=== PATIENT | female | born 1935 | race Caucasian/White ===

== ENCOUNTER 2017-11-02 15:00 | Outpatient (RCR) | payer MEDICARE, OTHER, SELFPAY ==
--- NOTE | 2017-10-06 09:31 | HP.PTEVAL_ITS ---
Patient's Visit Information GT DELGADO is a 82 year old F referred to Physical Therapy by Lisa JOHANSEN with a diagnosis of Physical deconditioning. Date of Evaluation: 09/29/17 Physical Therapist: Amor Del Rosario - Visit Plan Frequency: 2x /Week Duration: 4-6 Weeks Plan: Start with BLE strengthening progressing HEP. Educate on walking program at home. Nustep/bike for endurance. Add in balance activities as able, progress to HEP. - Subjective Subjective: Pt. is here today for her initial evaluation with diagnosis of physical deconditioning. Pt. arrives today with son to assist with history. Son reports pt. has mild dementia. Pt. and son report pt. spends most of her time in bed, only gets out of bed for 3 meals per day. Pt agrees. Pt. reports this is due to back pain. 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 Pt. reports LBP at times, that is worse with sitting and lying on hard surfaces. Pt. 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 Pt. does complete her own ADLs. Son is hopeful to increase pt's endurance and strength in order to tolerate increased walking and getting out into community. - Pain Lumbar spine Pain Intensity (Out of 10): Unrated Comment: Increased pain with sitting and lying in supine. - Objective POSTURE: Pt. is able to stand without AD. Pt. has FH and general flexed posture. Pt. has normal QUAN in stance. Pt. has sway back posture. PALPATION: Pt. has increased tenderness along bilateral SI region and lumbar spine. No pain throughout bilateral LEs. NEUROLOGICAL: Pt. has normal sensation to light and sharp touch throughout bilateral LEs. Pt. has 2+ achilles and patellar DTR bilaterally. Pt is able to rise on heels and toes wihtout visible weakness, but reports fatigue, balance aid required. ROM: LUMBAR SPINE: flexion- min loss increase NW, ext mod loss increase NW, SB min loss bilat NE, rotation min/mod loss increase NW bilat. Hip- bilaterally with in normal limits, tight HS and tight hip flexors bilaterally. MMT: RLE- ankle 5/5 throughout; knee- ext 4/5, flexion 4/5; hip- flexion 4/5 increase NW, abd 4-/5 increase NW, ext 4/5. LLE- ankle 5/5 throughout; knee- ext 4/5, flexion 4/5; hip-flexion 4/5, abd 4-/5, ext 4/5. Core strength- poor. GAIT: Pt. ambulates with single point cane with out postural sway. Decreased step length bilat, decreased tempo. Removed increased postural sway, decreased further leg length, and arms in gaurded positioning. STAIRS: PT. is michael to negotiate with 2 HR with step to pattern. Pt. reports increased pain in lumbar spine. Decreased tempo noted. Decreased functional strength noted with descending. - Balance Scores Functional Gait Assessment Score: 13 % Disability: 56.6700 - Goals Goal 1:: PT. to be I with HEP. Goal Time Frame: 4-6 Weeks Goal 2:: Pt. to have increased BLE strength by 1/2 grade to increase ability to complete all functional mobility. Goal Time Frame: 4-6 Weeks Goal 3:: Pt. to start and maintain walking routine with gradual progression to increase overall endurance and maintain/improve fitness levels. Goal Time Frame: 4-6 Weeks Goal 4:: Pt. to walk 1000+ feet without Ad with improved gait pattern, indicating increased overall endurance. Goal Time Frame: 4-6 Weeks Goal 5:: Pt. to report increased lumbar spine pain to 2/10 with sleeping and sitting improving quality of life. Goal Time Frame: 4-6 Weeks - Rehabilitation Potential Physical Therapy Diagnosis: Pt. presents with overall physical deconditioning due to limited daily activity. Pt. does very minimal activty throughout the day and spends most of her day in bed. Pt. presents with marked BLE and core weakness, marked gait difficulty and overall decreased endurance. Pt. would benefit from PT to address above limittations. Rehabilitation Potential: Fair - Anticipated Interventions Patient/Client Instruction: Educate patient on: Condition, Plan of Care, Risk Factors, Benefits of Fitness Program For the Purpose of:: To improve decision making, To facilitate caregiver knowledge, To improve self management, To prevent re-injury, To improve ability to perform tasks related to life management, To improve tolerance to ADL's Therapeutic Exercise to Include: Strength training, Power training, Endurance training, Balance training, Coordination, Postural training, Gait and locomotor training, Passive ROM, Active ROM, Dynamic Lumbar Stabilization For the Purpose of:: To decrease pain, To decrease swelling/inflammation, To increase ROM, To improve nutrient delivery to tissue, To increase oxygenation perfusion, To improve muscle performance and motor function, To improve ability to perform ADL's, To increase tolerance to activity/condition/position, To improve performance and independence with ADL's, To improve ability of physical actions for home/community/work/leisure, To improve gait and locomotor functions , To improve health of tissue Cryotherapy (ice pack, ice massage): Yes Thermo therapy (hot pack): Yes For the Purpose of:: To decrease pain, To increase ROM Thank you for the opportunity to evaluate your patient. For Medicare and Medicare HMO plans, please review the plan of care and approve it. It will need to be FAXED BACK to us at [phone] for Medicare purposes. Please let me know if there are questions or concerns regarding this plan of care. Physician Signature: Date:
--- NOTE | 2017-11-03 10:21 | HP.PTREVAL_ITS ---
Lisa Brooks, It has been my pleasure to treat GT DELGADO over the last 8 visits for Physical deconditioning. Please see the progress note below for an update on the physical therapy plan of care! Subjective: Pt. reports I am getting better. Son reports increased walking at home and has started getting out into garden. Son reports pt. is up and moving for increased periods of the day rather than lying in bed for 20+ hours per day. Pt. reprots having 3/10 pain in lumbar spine at times, none currently Objective/Function: GAIT- Pt. ambulated 350ft. with ANTOINE with cane. Pt. required frequent VCing for proper technique with cane, as she tends to drag can behind her. Pt. had increased stability this date. MMT- RLE- ankle 5/5 throughout; knee- ext 4+/5, flexion 4/5; hip- flexion 4/5, abd 4/5, ext 4+/5. LLE- ankle 5/5 throughout; knee- ext 5-/5, flexion 4/5; hip- flexion 4/5, abd 4/ 5, ext 4+/5. Pt. reports no lumbar spine pain currently, but reports having increased pain with all outside work. Son reports increased walking at home and outside, as well as going to grocery store this week. Pt. does report increased fatigue as times thats because I am anemic. Pt. is progressing as expected with endurance and functional mobility. Plan Plan: POC extended 2x per week for 3-4 weeks to continue to progress LE strength , gait stability, endurance and safety with all functional mobility. Focus on increased endurance and BLE strengthening to increase community mobility tolerance. Goals Goal 1:: PT. to be I with HEP. Goal Time Frame: 4-6 Weeks Goal Progress: Progressing Goal 2:: Pt. to have increased BLE strength by 1/2 grade to increase ability to complete all functional mobility. Goal Time Frame: 4-6 Weeks Goal Progress: Progressing Goal 3:: Pt. to start and maintain walking routine with gradual progression to increase overall endurance and maintain/improve fitness levels. Goal Time Frame: 4-6 Weeks Goal Progress: Progressing Goal 4:: Pt. to walk 1000+ feet without Ad with improved gait pattern, indicating increased overall endurance. Goal Time Frame: 4-6 Weeks Goal Progress: Progressing Goal 5:: Pt. to report increased lumbar spine pain to 2/10 with sleeping and sitting improving quality of life. Goal Time Frame: 4-6 Weeks Goal Progress: Progressing Anticipated Interventions Patient/Client Instruction: Educate patient on: Condition, Plan of Care, Risk Factors, Benefits of Fitness Program For the Purpose of:: To improve decision making, To facilitate caregiver knowledge, To improve self management, To prevent re-injury, To improve ability to perform tasks related to life management, To improve tolerance to ADL's Therapeutic Exercise to Include: Strength training, Power training, Endurance training, Balance training, Coordination, Postural training, Gait and locomotor training, Passive ROM, Active ROM, Dynamic Lumbar Stabilization For the Purpose of:: To decrease pain, To decrease swelling/inflammation, To increase ROM, To improve nutrient delivery to tissue, To increase oxygenation perfusion, To improve muscle performance and motor function, To improve ability to perform ADL's, To increase tolerance to activity/condition/position, To improve performance and independence with ADL's, To improve ability of physical actions for home/community/work/leisure, To improve gait and locomotor functions , To improve health of tissue Cryotherapy (ice pack, ice massage): Yes Thermo therapy (hot pack): Yes For the Purpose of:: To decrease pain, To increase ROM Please do not hesitate to contact me at [phone] by phone or Fax: if you have questions or concerns regarding this new plan of care! Sincerely, Amor Del Rosario
--- NOTE | 2018-03-17 11:36 | HP.PTDCNRP_ITS ---
HP - Discharge Summary (1) - Patient Information GT DELGADO was seen in my office for initial evaluation on 09/29/17. The following Plan of Care was established for this patient: Initial Frequency: 2x /Week Initial Duration: 4-6 Weeks - Anticipated Interventions Patient/Client Instruction: Educate patient on: Condition, Plan of Care, Risk Factors, Benefits of Fitness Program For the Purpose of:: To improve decision making, To facilitate caregiver knowledge, To improve self management, To prevent re-injury, To improve ability to perform tasks related to life management, To improve tolerance to ADL's Therapeutic Exercise to Include: Strength training, Power training, Endurance training, Balance training, Coordination, Postural training, Gait and locomotor training, Passive ROM, Active ROM, Dynamic Lumbar Stabilization For the Purpose of:: To decrease pain, To decrease swelling/inflammation, To increase ROM, To improve nutrient delivery to tissue, To increase oxygenation perfusion, To improve muscle performance and motor function, To improve ability to perform ADL's, To increase tolerance to activity/condition/position, To improve performance and independence with ADL's, To improve ability of physical actions for home/community/work/leisure, To improve gait and locomotor functions , To improve health of tissue Cryotherapy (ice pack, ice massage): Yes Thermo therapy (hot pack): Yes For the Purpose of:: To decrease pain, To increase ROM This patient was last seen in our office 11/02/17. Pertinent comments regarding their Physical therapy will appear below: Pt. was see for her generalized weakness. Pt. progress with BLE/core strength and stability with gait. Pt. agreed to extended POC, but did not attend any further treatments. Pt. has not been seen in ~4 months and will be DC from PT at this point in time. At this point I will be discontinuing this patient from physical therapy. I would be happy to see this patient again in the future if found appropriate by the physician. Thank you! Amor Del Rosario
== END 2017-11-02 19:00 | disposition home or self-care (01) ==
LOC: PT 15:00
PROVIDERS: Family Provider Internal Medicine; PCP Internal Medicine; Visit Provider Internal Medicine
DX: R53.81 Other malaise (principal)
CPT/HCPCS: 97110; 97116; 97162; 97530

== ENCOUNTER → 2017-12-10 16:10 | Outpatient (CLI) | payer MEDICARE, OTHER, SELFPAY ==
--- NOTE | 2017-12-10 16:10 | DT_ITS ---
This patient was seen during an EMR downtime December 06, 2017 - December 13, 2017. This patient may have a combination of paper and electronic documentation or all paper documentation. All documentation is viewable within the e-chart portion of [employer] for each patient visit.
[2017-12-14 09:28] LABS: CRP < 2.90 mg/L (0.0-3.0); Iron 91 ug/dL (50-170)
[2017-12-17 16:11] LABS: Endomysial Antibody IgA Negative (Negative); Immunoglobulin A 212 mg/dL (64-422)
[2017-12-18 14:30] LABS: t-Transglutaminase IgA <2 U/mL (0-3)
== END ==
PROVIDERS: Family Provider Internal Medicine; PCP Internal Medicine; Visit Provider Internal Medicine Gastroenterology
DX: R19.7 Diarrhea, unspecified (principal); D50.9 Iron deficiency anemia, unspecified
CPT/HCPCS: 36415; 82784; 83516; 83540; 86140; 86255

== ENCOUNTER → 2018-03-18 13:29 | Outpatient (CLI) | payer MEDICARE, OTHER, SELFPAY ==
--- NOTE | 2018-03-18 13:00 | SP.MBSS_ITS ---
PRIMARY / SECONDARY DIAGNOSIS: dysphagia (R13.10) REFERRING PHYSICIAN: Dr. Lisa Brooks MD CURRENT DIET: regular textures, thin liquids DENTITION: upper plate, lower partials MENTAL STATUS: dementia RESPIRATORY STATUS: O2 via room air PREVIOUS MODIFIED BARIUM SWALLOW STUDY: 09/28/2016 MBS revealed mild oropharyngeal dysphagia (R13.12) with transient penetration of thin liquids. 09/03/2016 MBS revealed mild dysphagia (R13.10), with transient penetration above the vocal folds of thin liquids. REASON FOR REFERRAL: Patient is an 82 year old female referred for a modified barium swallow (MBS) study to objectively assess the Patients oropharyngeal swallow function under fluoroscopy secondary to the diagnosis of dementia and associated dysphagia and reported prior cerebrovascular accidents vs. transient ischemic attacks. The Patient is well known to this clinician from previous [facility] admissions spanning from 03/14/2016 to 2015, in addition to prior hospitalization from 09/01/2016 to 09/04/2016 due to shortness of breath, and nausea with emesis and dehydration, treated for pneumonia and hypoxia related to an aspiration event; and 09/03/2016 repeat MBS. The Patient was accompanied to the assessment by her significant other (Jeremias ), who provided insight into current abilities. Per report, the Patient occasionally experiences a midsternal thump or hollow feeling without odynophagia during deglutition with occasional coughing spells, though neither is consistently associated with intake. Both report about a 5-10 weight loss over 8 months that is attributed to a varied appetite / poor appetite that fluctuates with stress, with the Patient notably preferring sweets. The Patient denies any dysgeusia or ageusia, denies sialorrhea. The Patient has additionally demonstrated a continued gradual decline in cognitive functioning, and has required increased assistance with daily care, requiring assistance with dressing, intermittently incontinent of stool and urine with recent UTIs, requires assistance for meal preparation and setup; Faheem Index: (75/100) minimal dependence (based on report). The Patient is completely dependent for all higher level cognitive tasks (finances, medications, does not drive, does not manage daily schedule) which has been consistent for years. MEDICAL HISTORY: Dementia, chronic obstructive pulmonary disease, gastroesophageal reflux disease, chronic benzodiazepine dependence with hallucinations, severe depression & anxiety with history of suicide attempts, nicotine addiction and tobacco abuse, chronic pain and weakness, degenerative joint disease, hypertension, venous insufficiency, hard of hearing, and history of cholecystectomy and foot surgery. STUDY FINDINGS: Patient participated in a Modified Barium Swallow (MBS) study on 03/18/2018. Dr. Madera was the radiologist present for this evaluation. This study was recorded in the lateral view and images were sent to PACs for storage. The following consistencies were presented to this patient for analysis of oropharyngeal swallow function: thin liquids, pudding, and a regular textured, Katy Doone cookie. Results of the MBS are as follows: PENETRATION / ASPIRATION SCALE (HILLS): 1 = does not enter airway 2 = enters airway/above vocal folds/ejected 3 = enters airway/above vocal folds/not ejected 4 = enters airway/contacts vocal folds/ejected 5 = enters airway/contacts vocal folds/not ejected 6 = enters airway/below vocal folds/ejected 7 = enters airway/below vocal folds/not ejected despite effort 8 = enters airway/below vocal folds/no effort PENETRATION / ASPIRATION SCALE (SCORE) WITH VIDEOFLOROSCOPIC SCALE SCORE: Thin liquid - 5 mL tsp.: 1 Thin liquids via cup (large sip): 2 Thin liquids via cup (large sip): 2 Thin liquids via cup (single sip): 1 Thin liquids via cup (single sip): 2 Thin liquids via cup (sequential swallows): 2 Thin liquids via straw (sequential swallows): 2 Pudding via spoon: 1 Regular textured cookie: 1 Thin liquids via cup (sequential swallows): 2 IMPRESSION: DIAGNOSIS: mild to moderate oropharyngeal dysphagia (R13.12) ORAL PHASE CHARACTERIZED BY: LABIAL SEAL: no labial escape TONGUE CONTROL DURING BOLUS MANIPULATION: cohesive bolus between tongue to palatal seal BOLUS PREPARATION / MASTICATION: slow prolonged chewing/mashing with complete recollection BOLUS TRANSPORT / LINGUAL MOTION: slowed tongue motion ORAL RESIDUE: trace residue lining oral structures PHARYNGEAL PHASE CHARACTERIZED BY: INITIATION OF PHARYNGEAL SWALLOW: bolus head in pyriforms at first hyoid excursion SOFT PALATE ELEVATION: no bolus between soft palate and pharyngeal wall LARYNGEAL ELEVATION: complete superior movement of thyroid cartilage with complete approximation of arytenoids cartilage to epiglottic petiole ANTERIOR HYOID EXCURSION: partial anterior movement EPIGLOTTIC MOVEMENT: complete epiglottic inversion LARYNGEAL VESTIBULE CLOSURE AT HEIGHT OF SWALLOW: complete laryngeal vestibule closure with no air/contrast in laryngeal vestibule PHARYNGEAL STRIPPING WAVE: pharyngeal stripping wave present / complete PHARYNGOESOPHAGEAL SEGMENT OPENING: complete distension and complete duration with no obstruction of flow TONGUE BASE RETRACTION: trace column of contrast between tongue base and posterior pharyngeal wall PHARYNGEAL RESIDUE: trace residue within or on pharyngeal structures ESOPHAGEAL PHASE CHARACTERIZED BY: ESOPHAGEAL BOLUS CLEARANCE IN THE UPRIGHT POSITION: could not view DIET TEXTURE RECOMMENDATIONS: Will recommend a regular textured, thin liquid diet. COMPENSATORY STRATEGIES RECOMMENDED: Supervision with assistance as needed, reduced bolus volume, reduced rate of intake, seated upright at 90 degrees during PO intake, remain upright for 30-60 minutes post meal (GERD precaution) INTERPRETATION OF RESULTS: Patient presents with mild to moderate oropharyngeal dysphagia (R13.12) secondary to the diagnosis of dementia. Oral preparatory phase marked by mild increased in mastication duration, albeit effective bolus breakdown noted. Oral transit marked by slowed and somewhat disjointed bolus transit; no fasciculations or undulations noted; no premature posterior bolus loss. Pharyngeal phase marked by impaired pharyngeal swallow onset timing with intermittent 1-2 second pharyngeal bolus dwell time resulting in suboptimal bolus location upon swallow onset directly contributing to prandial transient penetration of thin liquids with sufficient and consistent laryngeal vestibule pressure generated to expel penetrated material. Prominent cricopharyngeal bar located at the C-6 level, no effect on pharyngoesophageal motility. Noted gulping sounds with intermittent post prandial eructation suggestive of aerophagia; may account for midsternal thump or hollow feeling. RECOMMENDATIONS: Patient requires intensive skilled speech-language intervention targeting continued diet texture management; and Patient / caregiver education regarding dysphagia associated with progressive neurological etiologies. Would consider a repeat MBS within 1-2 years to assess for any further deterioration in swallow function. 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 The Patient and the Patients significant other deny any acute or fluctuating presentation of any cognitive-linguistic deficit to date. The Patient has been placed on Donepezil secondary to dementia, with the Patients significant other reporting no changes in functioning or progression. Would consider further assessment via neurology. ADDITIONAL COMMENTS/RECOMMENDATIONS: Results and recommendations were discussed with the Patient immediately following MBS completion, with the Patient verbalizing understanding and agreement with all recommendations and education provided. Extensive time for completion required, as the Patient and Patients significant other arrived at [facility], and required re-direction, with extra completion time required to assist with arrival / rescheduling of appointments within the radiology department. IMAGE COUNT: 1852 G-CODES: SWALLOWING [id number] Current Status: KENYETTA SWALLOWING [id number] Goal Status: KENYETTA SWALLOWING [id number] Discharge Status: KENYETTA Reddy M.A., CCC-LEVEL [employer] [facility] Speech-Language Pathology Department [email or web address]
--- NOTE | 2018-03-18 14:10 | RAD_ITS ---
STUDY: SWALLOWING STUDY REASON FOR EXAM: Female, 82 years old. Dysphagia. TECHNIQUE: The examination was performed with Speech Pathology in attendance. Under fluoroscopic observation, the patient ingested thin barium, thick barium, barium pudding, and barium coated cracker. FLUOROSCOPY TIME: 2:01 minutes/seconds. 1852 fluoroscopic images were obtained. RADIOLOGIST INVOLVEMENT: Radiologist was present and providing direct supervision. COMPARISON: None. FINDINGS: The following was observed during swallowing of the various mixtures of barium: Thin Barium: Transient penetration with evacuation upon ingestion of thin liquids. Barium Pudding: There was no evidence of aspiration or laryngeal penetration. Barium Coated Cracker: There was no evidence of aspiration or laryngeal penetration. RAD/Swallowing Function w/Video IMPRESSION: Transient penetration with evacuation upon ingestion of thin liquids. The swallow study findings were discussed with the patient by the speech pathologist at the conclusion of the examination. Please see speech pathology report for more information and recommendations. Electronically Signed: Jose Madera MD at 15:28 EDT Tel [phone], Service support ,
== END ==
PROVIDERS: Family Provider Internal Medicine; PCP Internal Medicine; Visit Provider Internal Medicine
DX: R13.10 Dysphagia, unspecified (principal)
CPT/HCPCS: 74230; 92611; G8996; G8997; G8998

== ENCOUNTER → 2018-04-04 14:50 | Outpatient (CLI) | payer MEDICARE, OTHER, SELFPAY ==
[2018-04-04 17:51] LABS: ALB/GLOB Ratio 0.9 RATIO (0.9-2.4); AST(SGOT) 14 U/L (15-37); Alanine Aminotransfer ALT/SGPT 17 U/L (13-56); Albumin, Serum 3.7 g/dL (3.2-5.0); Alkaline Phosphatase 100 U/L (45-117); Anion Gap 12 (5-15); BUN 13 mg/dL (7-18); BUN/Creat Ratio 10.8 RATIO (10-20); Calcium,Total 9.6 mg/dL (8.5-10.1); Chloride 112 mmol/L (98-107); EST Glomerular Filtration Rate 46 mL/min (>60); Est Glom Filt Rate - Afr Amer 56 mL/min (>60); Globulin 3.9 g/dL (2.2-4.2); Glucose 92 mg/dL (74-106); Potassium 3.9 mmol/L (3.5-5.1); Protein, Total 7.6 g/dL (6.4-8.2); Sodium Level 146 mmol/L (136-145)
[2018-04-04 17:55] LABS: Absolute Lymphocyte Count 2.22 X10^3/ul (0.83-4.51); Absolute Neutrophil Count 6.2 X10^3/uL (2.0-7.7); Basophil# 0.06 X10^3/uL; Basophil% 0.6 % (0-1); Eosinophil# 0.32 X10^3/uL; Eosinophils% 3.3 % (0-5); Hemoglobin 12.9 g/dl (12.0-15.0); Lymphocyte # 2.22 X10^3/ul (4.0); Lymphocyte % 23.1 % (19-41); Mean Corp Hgb Conc 31.5 g/gl (32-36); Mean Corpuscular Hgb 31.2 pg (27.0-32.0); Mean Corpuscular Volume 99.3 fL (81-99); Mean Platelet Vol. 10.6 fl (6.2-12.0); Monocyte# 0.76 X10^3/uL; Monocyte% 7.9 % (0-10); Neutrophil % 64.8 % (47-70); POSITIVE COUNT NO; POSITIVE DIFFERENTIAL NO; POSITIVE MORPHOLOGY NO; Platelet Count 407 K/mm3 (150-450); RBC Distribution Width CV 13.8 % (11.6-14.6); RBC Distribution Width SD 49.6 fl (35.1-43.9); Red Blood Count 4.13 M/mm3 (4.2-5.4); White Blood Count 9.6 K/mm3 (4.4-11.0)
[2018-04-04 18:03] LABS: Erythrocyte Sedimentation Rate 43 mm/hr (0-30)
[2018-04-07 13:13] LABS: ANTINUCLEAR ANTIBODIES DIRECT Negative (Negative)
== END ==
PROVIDERS: Family Provider Internal Medicine; PCP Internal Medicine; Referring Provider Dermatology Pediatric Dermatology; Visit Provider Dermatology Pediatric Dermatology
DX: L30.9 Dermatitis, unspecified (principal); L29.8 Other pruritus
CPT/HCPCS: 36415; 80053; 85025; 85652; 86038

== ENCOUNTER 2018-04-21 11:30 | Outpatient (RCR) | payer MEDICARE, OTHER, SELFPAY ==
--- NOTE | 2018-03-17 14:55 | HP.SP.AD_ITS ---
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 Date of Onset of Diagnosis: unknown Previous speech therapy: Yes Results: Prior intervention cycles notable for severe bradyphrenia complicating the entire executive functioning profile; intervention progress was complicated frequent and rather significant hyperemotional responses with severe anxiety, in addition to consistent vivid visual hallucinations consisting of multiple television personalities on news channels that had recruited her to work with the [employer], stating that said individuals are coming out of the television set to converse directly with the Patient (states she has to slightly tilt the television mounted on the wall for said personalities to appear from the television), telling her that they all have told me that I have a big part in Alvar[employer] Lynne getting elected, though stated that she cannot tell this clinician further information due to agreements upon accepting the assignment, and that all communication is through the television; when the Patient reported that the said individuals had appeared to speak directly to myself, I responded that I did not understand / see the said individuals, and the Patient became very emotional and refused any further intervention. Upon discussion with the Patients significant other, this had been occurring for well over 1 year (approximately 2014), and that he has been throwing away checks that she had written to the [employer], as they often were not sufficiently filled out, and the Patient did not have the appropriate funds to cover the check. The Patient appears to not have recalled this, and has been agreeable to working with this clinician on multiple occasions since. Other Relevant Medical History/Diagnoses/Surgery: Dementia, gastroesophageal reflux disease, chronic benzodiazepine dependence with hallucinations, severe depression & anxiety with history of suicide attempts, chronic obstructive pulmonary disease, nicotine addiction and tobacco abuse, chronic pain and weakness, degenerative joint disease, hypertension, venous insufficiency, hard of hearing (does not utilize hearing aids), and history of cholecystectomy and foot surgery; [place] Comorbidity Index: 7 Smoking Status: Current every day smoker Hx Smoking: Yes Hx Tobacco Use: Yes Hx Smoking Exposure: Yes - Pain Is pain an issue with your current prescribed condition?: No - Personal Education History: High school 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 [employer] Right Hearing Abillity: Hard of Hearing Left Hearing Abillity: Hard of Hearing Patients Living Arrangements: With Significant Other Patient Allergies - Allergies Allergies gabapentin Allergy (Verified 07/28/17 14:22) Rash lisinopril Allergy (Verified 07/28/17 14:22) Shortness of breath metoprolol Allergy (Verified 07/28/17 14:22) Other DIFFICULTY BREATHING Penicillins Allergy (Verified 07/28/17 14:22) Rash Tetanus Vaccines and Toxoid [Tetanus Vaccines & Toxoid] Allergy (Verified 14:22) Unknown ropinirole Adverse Reaction (Verified 07/28/17 14:22) Unknown Subjective Cog/Ling/Com - Subjective Cognitive/Linguistic/Communication: The Patient is an 82 year old female well known to this clinician who was referred to [facility] on 03/17/2018 for a cognitive communication assessment secondary to a prior cerebrovascular accident / transient ischemic attack. The Patient is well known to this clinician from previous [facility] admissions spanning from 03/14/2016 to 03/27/2016, in addition to prior hospitalization from 09/01/2016 to 09/04/2016 due to shortness of breath, and nausea with emesis and dehydration, treated for pneumonia and hypoxia related to an aspiration event; and 09/03/2016 repeat MBS. The Patient was accompanied to the assessment by her significant other (Jeremias ), who provided insight into current abilities. Per report, the Patient has exhibited difficulties ?coming up with the right words? that has gradually worsened over the last year or so, with no acute or fluctuating appearance. The Patient has additionally demonstrated a continued gradual decline in cognitive functioning, and has required increased assistance with daily care, requiring assistance with dressing, intermittently incontinent of stool and urine with recent UTI?s, requires assistance for meal preparation and setup; Faheem Index : (75/100) minimal dependence (based on report). The Patient is completely dependent for all higher level cognitive tasks (finances, medications, does not drive, does not manage daily schedule) which has been consistent ?for years?. 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 The Patient and the Patient ?s significant other deny any acute or fluctuating presentation of any cognitive -linguistic deficit to date. The Patient has been placed on Donepezil secondary to dementia, with the Patient?s significant other reporting no changes in functioning or progression. Cognitive Linguistic Comments - Comments Executive Functioning Executive functioning marked by significantly impaired processing speed / severe bradyphrenia, with response times for simple cognitive and personal based questions occasionally well over 30 seconds in length; somewhat frequent cognitive inertia, with the Patient unable to initiate tasks without some form of cueing; circumstantial and at times tangential thinking, occasionally perseverative on topic; impaired attention across domains; and bradyphrenia clearly impacting information encoding and retrieval. Rather clear emotional dysregulation, with the Patient quickly becoming emotionally tearful at multiple points of the session that does not consistently accompany appropriately emotional topics, though this is not necessary a new phenomenon. Expressive Language Expressive language marked by slowed, somewhat effortful speech somewhat similar to progressive nonfluent aphasia (PNFA), intermittent disfluencies noted during the assessment (not wholly significant; more prominent during 2016 admission), no groping for placement or any other associated signs of apraxia of speech, intermittent and infrequent phonemic paraphasias (again more pronounced during prior admissions); anomia is clearly present, though very likely caused or at least significantly impacted by the significance of bradyphrenia. No significant dysarthria despite intermittent and mild mandibular tremors; mild vocal tremor typically accompanying emotional responses. 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 Visuospatial Deficits No clear visuospatial deficits present. Objective Data AMT-4: (3/4) ? abnormal; unable to orient to year.; 4AT: (3/4) ? likely cognitive impairment; lower score better; GPCOG: (08/13) ? cognitive impairment is indicated; Memory Impairment Screen (MIS): (10/10) ? impaired; Mini-Cog: (07/09) ? impaired; AD8 Dementia Screening Interview: (02/09) ? cognitive impairment is likely to be present; Patient Health Questionnaire ? 9 (PHQ-9): () ? severe depression; prior and current medical / pharmacological intervention; Functional Assessment Staging of Alzheimer?s Disease (FAST): 6ad; Global Deterioration Scale (GDS) for Assessment of Primary Degenerative Dementia: 5 ? suggestive of moderately severe cognitive decline; Moderate Dementia. Plan - Plan Plan: Patient presents with moderate to severe cognitive deficits most likely attributed to a progressive neurologically based etiology (dementia) possibly influenced by chronic benzodiazepine dependence with hallucinations, and clearly impacted by severe depression & anxiety with history of suicide attempts. The Patient may benefit from additional skilled speech-language intervention (recommend an initial 10 sessions) targeting training and implementation of executive functioning strategies, training and implementation of external and internal memory aids, and further assessment of the Patients cognitive functioning to maintain the Patient?s current cognitive communication abilities, as improvement is likely fleeting with the progressive nature of the attributed etiology of cause. Will defer the clinical dysphagia examination this date, as the Patient is scheduled for a repeat modified barium swallow (MBS ) study to objectively assess the swallow function on 03/18/2018; will adjust the treatment plan as appropriate. - Recommendations MBS: Yes Treatment Warranted: Yes - Frequency Frequency: 1x/Week Duration: 3 Months - Prognosis Prognosis: Fair - Goals that are Established: Determination:: Goals will be added/modified as deemed necessary and appropriate. Therapy will be discontinued when results of re-evaluation indicate therapy is no longer needed or lack of progress has been documented. - Goal #1-5 Goal #1: Pt. will utilize compensatory executive functioning / processing strategies identified and implemented during structured therapeutic to facilitate improved cognitive processing and achievement of the highest level of safe, independent functioning with 100% accuracy over 2 consecutive sessions. Goal #2: Pt. will participate in further cognitive communication assessment to determine further need and appropriateness of therapeutic intervention targeting expressive communication and higher level cognitive functioning abilities. Goal #3: Pt will tolerate the least restrictive means of nutrition to facilitate adequate hydration/nutrition with optimum safety and efficiency of swallowing function during P.O. intake without overt signs and symptoms of aspiration. Goal #4: Pt will participate in a Modified Barium Swallow (MBS) study to objectively assess the Pt.?s oropharyngeal swallowing function, to determine the least restrictive means of nutrition, and to identify appropriate intervention approaches / strategies to implement during treatment sessions at the supervised level. Education - Patient Instruction Patient Education: Diagnosis, Treatment Plan Person Taught: Patient, Significant Other Teaching Method: Discussion Response to teaching: Verbalize understanding
--- NOTE | 2018-07-28 17:38 | HP.SP.DC ---
ST Discharge Summary - Discharged: Discharge: The Patient is an 82 year old female who attended 2 skilled speech-language intervention sessions spanning from 03/17/2018 to 04/21/2018 targeting cognitive communication abilities secondary to moderate to severe cognitive deficits most likely attributed to a progressive neurologically based etiology (dementia) possibly influenced by chronic benzodiazepine dependence with hallucinations, and clearly impacted by severe depression & anxiety with history of suicide attempts. The Patient participated in 1 intervention session consisting of training and implementation of executive functioning strategies, training and implementation of external and internal memory aids, and further assessment of the Patients cognitive functioning to maintain the Patient?s current cognitive communication abilities, though improvement was considered to be likely fleeting with the progressive nature of the attributed etiology of cause. The Patient further participated in a 03/18/2018 MBS with the Patient presenting with mild to moderate oropharyngeal dysphagia (R13.12) secondary to the diagnosis of dementia, with recommendations for continued skilled speech-language intervention targeting continued diet texture management; and Patient / caregiver education regarding dysphagia associated with progressive neurological etiologies, with considerations for a repeat MBS within 1-2 years to assess for any further deterioration in swallow function. The Patients significant other contacted [facility] [employer] on 04/28/2018 to request discharge from the caseload due to Patient preferences. Will discharge from the skilled speech-language pathology caseload at this time per Patent and family request, though would gladly re-initiate intervention following re-assessment as needed moving forward.
== END 2018-04-21 19:00 | disposition home or self-care (01) ==
LOC: SP 11:30
PROVIDERS: Family Provider Internal Medicine; PCP Internal Medicine; Visit Provider Internal Medicine
DX: R47.01 Aphasia (principal); R47.9 Unspecified speech disturbances; R13.14 Dysphagia, pharyngoesophageal phase; Z86.73 Personal history of transient ischemic attack (TIA), and cerebral infarction without residual deficits
CPT/HCPCS: 92507; 92523; 92610

== ENCOUNTER 2018-11-29 14:27 | Emergency (ER) | payer MEDICARE, OTHER, SELFPAY ==
[2018-11-29 14:28] VITALS: BP 149/107; PULSE 81
[2018-11-29 14:29] VITALS: BP 149/107; PULSE 79; RESP 18; TEMP 36.4; O2SAT 90; BMI 26.4
--- NOTE | 2018-11-29 15:41 | ED.VIS.GEN ---
History of Present Illness Chief Complaint: GI Bleed Informant: - - Nurse informed me gave history and left Limited by: Dementia Onset: - - Blood in stool for 3 weeks and lower abdominal cramping pain for several days per triage. When asked where it hurts she points to her right and left thigh. Context: - - Unknown and unable to determine Timing: - - Unknown and unable to determine Quality: Patient not able to elaborate Location: Unknown Current Severity: - - Patient responded I do not feel well Worsened by: Unknown Relieved by: Unknown Associated Symptoms: Unknown Narrative: Patient is an 83-year-old woman with dementia per old records who was brought to the ER because of blood in her stool for 3 weeks and cramping lower abdominal pain. When asked to point where it hurts she points to to her right and left anterior mid thigh. Unable to obtain any other information. is not available. 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 (4) HTN (hypertension) Status: Chronic (5) Depression Status: Chronic (6) COPD (chronic obstructive pulmonary disease) Status: Chronic (7) DJD (degenerative joint disease) Status: Chronic (8) Hyperlipidemia Status: Chronic (9) Benzodiazepine dependence Status: Chronic Past Medical History - Allergies and Home Meds Allergies/Adverse Reactions: Allergies gabapentin Allergy (Verified 11/29/18 14:28) Rash lisinopril Allergy (Verified 11/29/18 14:28) Shortness of breath metoprolol Allergy (Verified 11/29/18 14:28) Other DIFFICULTY BREATHING Penicillins Allergy (Verified 11/29/18 14:28) Rash Tetanus Vaccines and Toxoid [Tetanus Vaccines & Toxoid] Allergy (Verified 11/29/18 14:28) Unknown ropinirole Adverse Reaction (Verified 11/29/18 14:28) Unknown Primary Care Physician: Lisa Brooks MD [Primary Care Provider] - Prior records reviewed: Yes - That patient has history of dementia Surgical History: cholecystectomy, - - Past history foot surgery Lives: Spouse/ Significant Other Smoking Status: Former smoker - Family History Maternal Family History: Reports: Unknown Paternal Family History: Reports: Unknown Review of Systems ROS: Unable to Obtain Physical Exam Vital Signs/Narrative: Vital Signs Temp Pulse Resp BP Pulse Ox 11/29/18 14:29 97.6 F L 79 18 149/107 H 90 11/29/18 14:28 81 149/107 H Inital Vital Signs reviewed: Yes General: Well nourished, Well developed, No Acute Distress Head: Normocephalic Eyes: Perrl, EOMI. Negative for: Pale conjunctiva, Scleral icterus, - ENT: No rhinorrhea, TM's clear Neck: Supple, Nontender, No lymphadenopathy, No JVD Cardiovascular: Regular rate, Regular rhythm, No murmurs, Normal S1, Normal S2 Respiratory: No distress, CTA bilaterally, Chest nontender Abdomen: Soft, Nontender, Nondistended, Normal bowel sounds, No masses. Negative for: Hepatomegaly, Splenomegaly Rectal: - - Perianal area is excoriated. There is an external hemorrhoid. Stool is brown. Back: Nontender, Normal Inspection Extremities: Nontender, No edema Skin: No rash, Pallor Neurological: Cranial nerves II-XII grossly intact, Normal Strength, Normal Sensation, Normal DTR. Negative for: Oriented x3 Psychological: Normal affect Diagnostic/Tx/Re-eval Laboratory Results 11/29/18 11/29/18 15:35 15:35 WBC 10.5 RBC 4.36 Hgb 12.4 Hct 38.9 MCV 89.2 MCH 28.4 MCHC 31.9 L RDW 16.0 H RDW Differential 52.4 H Plt Count 428 MPV 10.4 Immature Gran % (Auto) 0.200 Neut % (Auto) 63.9 Lymph % (Auto) 22.8 [place] % (Auto) 8.6 Eos % (Auto) 3.7 Baso % (Auto) 0.8 Absolute Neuts (auto) 6.7 Absolute Lymphs (auto) 2.40 Total Counted Not Reportable Sodium 142 Potassium 4.2 Chloride 111 H Carbon Dioxide 23.0 Anion Gap 8 BUN 19 H Creatinine 1.28 H Estim Creat Clear Calc 27.26 Est GFR (MDRD) Af Amer 51 L Est GFR (MDRD) Non-Af 43 L BUN/Creatinine Ratio 14.8 Glucose 96 Calcium 9.1 - Medical Decision Making Because there is a history of bright red blood per rectum for 3 weeks will obtain CBC to assess H&H. Because she complains of vague symptoms will obtain a basic metabolic panel to assess for electrolyte abnormality. Creatinine is slightly elevated. BUN to creatinine ratio was not elevated. She is not anemic. Therefore will discharge to home. Case management contacted . He presented. History is bright red blood per rectum. He suspects that she has hemorrhoids. She does have sniffing dementia and reason unable to provide history. ED Disposition - Plan for ED Patient: Disposition: Home or Assisted Living Diagnosis: External bleeding hemorrhoids, Renal insufficiency, History of dementia Instructions: ED Hemorrhoids, ED Insufficiency Renal Referrals: Lisa Brooks MD [Primary Care Provider] - 1 Week if not improving
[2018-11-29 16:05] LABS: Anion Gap 8 (5-15); BUN 19 mg/dL (7-18); BUN/Creat Ratio 14.8 RATIO (10-20); Calcium,Total 9.1 mg/dL (8.5-10.1); Chloride 111 mmol/L (98-107); Creatinine, Serum 1.28 mg/dL (0.55-1.02); EST Glomerular Filtration Rate 43 mL/min (>60); Est Glom Filt Rate - Afr Amer 51 mL/min (>60); Estimated Creatinine Clearance 27.26 ml/min; Glucose 96 mg/dL (74-106); Potassium 4.2 mmol/L (3.5-5.1); Sodium Level 142 mmol/L (136-145)
[2018-11-29 16:27] LABS: Absolute Neutrophil Count 6.7 X10^3/uL (2.0-7.7); Basophil# 0.08 X10^3/uL; Basophil% 0.8 % (0-1); Eosinophil# 0.39 X10^3/uL; Eosinophils% 3.7 % (0-5); Hematocrit 38.9 % (37-47); Hemoglobin 12.4 g/dl (12.0-15.0); Lymphocyte % 22.8 % (19-41); Mean Corp Hgb Conc 31.9 g/gl (32-36); Mean Corpuscular Hgb 28.4 pg (27.0-32.0); Mean Corpuscular Volume 89.2 fL (81-99); Mean Platelet Vol. 10.4 fl (6.2-12.0); Monocyte% 8.6 % (0-10); Neutrophil # 6.73 X10^3/uL (2.7-7.7); Neutrophil % 63.9 % (47-70); Platelet Count 428 K/mm3 (150-450); RBC Distribution Width SD 52.4 fl (35.1-43.9); Red Blood Count 4.36 M/mm3 (4.2-5.4); White Blood Count 10.5 K/mm3 (4.4-11.0)
[2018-11-29 16:28] LABS: POSITIVE COUNT NO; POSITIVE DIFFERENTIAL NO; POSITIVE MORPHOLOGY NO
--- NOTE | 2018-11-29 16:35 | CM.ED ---
SOCIAL WORK DR. EVANS REQUESTING THIS WORKER CONTACT PATIENT'S SIGNIFICANT OTHER BECAUSE SIGNIFICANT BROUGHT PATIENT INTO THE EMERGENCY DEPARTMENT, GAVE HX AND LEFT. PATIENT WITH DEMENTIA AND UNABLE TO PARTICIPATE. CALL TO PATIENT'S PERSON TO CONTACT, SIG OTHER- TAY PRABHAKAR [phone]. REQUESTED HE COME TO EMERGENCY DEPARTMENT PATIENT IS UNABLE TO PARTICIPATE IN ASSESSMENT. TAY STATES WILL BE IN IN ABOUT [address] EVANS UPDATED. DANIEL BLOUNT, DEMOLITION ENGINEER, CHAIN HOIST OPERATOR.
[2018-11-29 17:40] VITALS: BP 172/70; PULSE 69; RESP 16; RESP 6; O2SAT 97
== END 2018-11-29 17:41 | disposition home or self-care (01) ==
PROVIDERS: Emergency Provider Emergency Medicine; Family Provider Internal Medicine; PCP Internal Medicine
DX: K64.4 Residual hemorrhoidal skin tags (principal); N28.9 Disorder of kidney and ureter, unspecified; F03.90 Unspecified dementia, unspecified severity, without behavioral disturbance, psychotic disturbance, mood disturbance, and anxiety; I87.2 Venous insufficiency (chronic) (peripheral); F32.9 Major depressive disorder, single episode, unspecified; J44.9 Chronic obstructive pulmonary disease, unspecified; M19.90 Unspecified osteoarthritis, unspecified site; F13.20 Sedative, hypnotic or anxiolytic dependence, uncomplicated; Z90.49 Acquired absence of other specified parts of digestive tract; Z79.899 Other long term (current) drug therapy; Z87.891 Personal history of nicotine dependence
CPT/HCPCS: 80048; 85025; 99283